=== PATIENT | male | born 1970 | race Caucasian/White ===

== ENCOUNTER → 2021-11-13 15:14 | Outpatient (CLI) | payer OTHER, SELFPAY ==
--- NOTE | 2021-11-13 15:20 | DI.RAD.S_ITS ---
PROCEDURE: XR FEMUR RT MIN 2V INDICATIONS: Right leg injury TECHNIQUE: 2 views of the femur were acquired. COMPARISON: None. FINDINGS: Bones: No fractures or dislocations. No suspicious bony lesions. [id number] degenerative changes are seen at the right hip. Soft tissues: No suspicious soft tissue calcifications or masses. IMPRESSION: No acute osseous abnormality. If clinical suspicion and/or symptoms persist, additional imaging with repeat plain films, or advanced imaging (e.g. CT, MRI) may be helpful for further assessment. Dictated by: Baldev La M.D. on 11/13/2021 at 15:01 Approved by: Baldev La M.D. on 11/13/2021 at 15:02
== END ==
PROVIDERS: Family Provider Family Medicine; PCP Family Medicine; Referring Provider Nurse Practitioner Family; Visit Provider Nurse Practitioner Family
DX: S80.11XA Contusion of right lower leg, initial encounter (principal)
CPT/HCPCS: 73552